=== PATIENT | female | born 1980 | race Hispanic/Latino ===

== ENCOUNTER 2024-07-12 15:56 | Emergency (ER) | payer SELFPAY ==
[~2024-07-12] VITALS: Ht 170.2 cm; Wt 91.6 kg
[2024-07-12] MEDS ORDERED: VALACYCLOVIR HYD1 GM PO (16:28)
[2024-07-12] MEDS ORDERED: NAPROXEN500 MG PO (16:28)
[2024-07-12 16:52] VITALS: BP 167/99
== END 2024-07-12 16:52 | disposition home or self-care (01) | DRG 596 ==
LOC: ED 15:56
DX: B02.9 Zoster without complications (principal)